=== PATIENT | female | born 1950 | race Caucasian/White ===

== ENCOUNTER 2020-08-22 14:55 | Emergency (ER) | payer MEDICARE ==
[~2020-08-22] VITALS: Ht 165.1 cm; Wt 104.3 kg
[2020-08-22] MEDS ORDERED: GABAPENTIN600 MG PO (18:16)
[2020-08-22] MEDS ORDERED: Percocet 5-3251 EACH PO (19:46)
== END 2020-08-22 20:01 | disposition home or self-care (01) ==
LOC: ER 14:55
DX: S42.211A Unspecified displaced fracture of surgical neck of right humerus, initial encounter for closed fracture (principal); S42.215A Unspecified nondisplaced fracture of surgical neck of left humerus, initial encounter for closed fracture; I10 Essential (primary) hypertension; E78.00 Pure hypercholesterolemia, unspecified; E11.9 Type 2 diabetes mellitus without complications; K21.9 Gastro-esophageal reflux disease without esophagitis; Z91.09 Other allergy status, other than to drugs and biological substances; Z88.0 Allergy status to penicillin; W01.10XA Fall on same level from slipping, tripping and stumbling with subsequent striking against unspecified object, initial encounter
CPT/HCPCS: 70450; 70486; 73030; 96374; 99284-25; A9270; J3010